=== PATIENT | male | born 1975 | race Caucasian/White ===

== ENCOUNTER 2016-10-11 19:18 | Emergency (ER) | payer OTHER ==
[2016-10-11] MEDS ORDERED: DIPHENHYDRAMINE HCL 50 MG CAPSULE PO ONE (20:29)
[2016-10-11] MEDS ORDERED: FAMOTIDINE 20 MG TABLET PO ONE (20:29)
[2016-10-11] MEDS ORDERED: PREDNISONE 20 MG TABLET PO ONE (20:29)
--- NOTE | 2016-10-11 20:32 | ER Document Report ---
ED Medical Screen (RME) - General Chief Complaint: Allergic Reaction Stated Complaint: POSSIBLE ALLERGIC REACTION Time seen by provider: 20:29 Mode of Arrival: Ambulatory Information source: Patient Notes: 41-year-old male presents to ED for a bite of some sort to his left hand with swelling to the both sides of the hand down the second third fourth and fifth finger. Will treat with Benadryl Pepcid and prednisone in the RME. I have greeted and performed a rapid initial assessment of this patient. A comprehensive ED assessment and evaluation of the patient, analysis of test results and completion of medical decision making process will be conducted by an additional ED providers. TRAVEL OUTSIDE OF THE [place] IN LAST 30 DAYS: No - Related Data Allergies/Adverse Reactions: No Known Allergies Allergy (Unverified 10/11/16 20:26) Past Medical History - Social History Chew tobacco use (# tins/day): No Frequency of alcohol use: None Drug Abuse: None Renal/ Medical History: Denies: Hx Peritoneal Dialysis
[2016-10-11 21:57] VITALS: BP 111/74
--- NOTE | 2016-10-11 21:59 | ER Document Report ---
ED Allergic Reaction - General Chief Complaint: Allergic Reaction Stated Complaint: POSSIBLE ALLERGIC REACTION Time seen by provider: 21:54 Mode of Arrival: Ambulatory Information source: Patient Notes: 41-year-old male presents to ED for an insect bite to the left hand with swelling to the front and back of his hand up his second third fourth and fifth finger. Patient states she's been taken Benadryl and it was not doing a lot of good. Patient was given Benadryl Pepcid and prednisone in the RME earlier TRAVEL OUTSIDE OF THE [place] IN LAST 30 DAYS: No - HPI Onset: Yesterday Onset/Duration: Gradual Quality of pain: Throbbing - Tight Severity: Moderate Pain Level: 3 Identified cause: No Swelling: Hands Associated symptoms: None Similar symptoms previously: No Recently seen / treated by doctor: Yes - Related Data Allergies/Adverse Reactions: No Known Allergies Allergy (Unverified 10/11/16 20:26) Past Medical History - General Information source: Patient - Social History Smoking Status: Never Smoker Chew tobacco use (# tins/day): No Frequency of alcohol use: None Drug Abuse: None Occupation: retired Lives with: Family Family History: Arthritis, CAD, CVA, DM, Hyperlipidemia, Hypertension, Malignancy. denies: COPD, Thyroid Disfunction Patient has suicidal ideation: No Patient has homicidal ideation: No - Past Medical History Cardiac Medical History: Reports: Hx Hypercholesterolemia Pulmonary Medical History: Reports: Hx Asthma EENT Medical History: Reports: None Neurological Medical History: Reports: Hx Migraine Renal/ Medical History: Reports: None. Denies: Hx Peritoneal Dialysis GI Medical History: Reports: Hx Gastroesophageal Reflux Disease, Hx Colonoscopy Musculoskeltal Medical History: Reports Hx Arthritis, Reports Hx Musculoskeletal Trauma - 2 ribs hip and sternum fracture Skin Medical History: Reports None Psychiatric Medical History: Reports: Hx Depression Traumatic Medical History: Reports: Hx Fractures - Sternum ribs and hip, Hx Pneumothorax, Hx Traumatic Brain Injury. Denies: Hx Gunshot Wound Infectious Medical History: Reports: None Surgical Hx: Negative Past Surgical History: Reports: None - Immunizations Immunizations up to date: Yes Hx Diphtheria, Pertussis, Tetanus Vaccination: Yes History of Influenza Vaccine for 05/2016 - 10/2016 Season: Yes Review of Systems - Review of Systems Constitutional: No symptoms reported EENT: No symptoms reported Cardiovascular: No symptoms reported Respiratory: No symptoms reported Gastrointestinal: No symptoms reported Genitourinary: No symptoms reported Male Genitourinary: No symptoms reported Musculoskeletal: No symptoms reported Skin: No symptoms reported Hematologic/Lymphatic: No symptoms reported Neurological/Psychological: No symptoms reported Physical Exam - Vital signs Vitals: Temp Pulse Resp BP Pulse Ox 97.8 F 77 16 128/80 H 97 10/11/16 20:28 10/11/16 20:28 10/11/16 20:28 10/11/16 20:28 10/11/16 20:28 Interpretation: Normal - General General appearance: Appears well, Alert - HEENT Head: Normocephalic, Atraumatic Eyes: Normal Pupils: PERRL - Respiratory Respiratory status: No respiratory distress Chest status: Nontender Breath sounds: Normal Chest palpation: Normal - Cardiovascular Rhythm: Regular Heart sounds: Normal auscultation Murmur: No - Abdominal Inspection: Normal Distension: No distension Bowel sounds: Normal Tenderness: Nontender Organomegaly: No organomegaly - Back Back: Normal, Nontender - Extremities General upper extremity: Normal ROM, Normal temperature General lower extremity: Normal inspection, Nontender, Normal color, Normal ROM , Normal temperature, Normal weight bearing. No: Tonie's sign Hand: Tender, Swelling, Other - Erythema to the hand due to insect bite - Neurological Neuro grossly intact: Yes Cognition: Normal Orientation: AAOx4 [place] Coma Scale Eye Opening: Spontaneous Gen Coma Scale Verbal: Oriented Gen Coma Scale Motor: Obeys Commands Gen Coma Scale Total: 15 Speech: Normal Motor strength normal: LUE, RUE, LLE, RLE Sensory: Normal - Psychological Associated symptoms: Normal affect, Normal mood - Skin Skin Temperature: Warm Skin Moisture: Dry Skin Color: Normal Course - Re-evaluation Re-evalutation: 10/11/16 22:05 Patient was treated with prednisone and Pepcid and Benadryl and prescriptions given for prednisone and Pepcid patient instructed on use of Benadryl. [facility] - Vital Signs Vital signs: Temp Pulse Resp BP Pulse Ox 97.8 F 77 16 128/80 H 97 10/11/16 20:28 10/11/16 20:28 10/11/16 20:28 10/11/16 20:28 10/11/16 20:28 Discharge - Discharge Clinical Impression: swollen insect bite Condition: Stable Disposition: HOME, SELF-CARE Additional Instructions: ACUTE ALLERGIC REACTION: Your symptoms are due to an allergic reaction. Allergy can cause hives, swelling of the hands, feet, and face, hoarseness, and difficulty swallowing or breathing. It may be due to exposure to medication, animal dander, foods, infection, or insect bites. Medication is a common cause, even when prior use of this same medication caused no problems. Acute treatment may include adrenalin and antihistamines. Usually, the specific allergic agent can't be identified unless repeated episodes occur. Home treatment includes the following: (1) Stop any suspicious medications. This will be discussed with you. (2) Oral antihistamines for the next four to five days. Example, diphenhydramine (Benadryl) every four hours. (3) You may also use cimetidine (Tagamet), ranitidine (Zantac), or famotidine ( Pepcid) every four hours if diphenhydramine is not controlling itching and hives. (4) Avoid aspirin until the hives completely disappear. (5) Avoid hot baths or showers until the hives are completely gone. Call the doctor if faintness, difficulty swallowing, tightness in the chest , or wheezing occurs. STEROID MEDICATION: You have been given a medicine of the cortisone/steroid class. This medication is used to control inflammation or allergy. It is usually only given for a short period of time, until the acute process subsides. There are usually no side effects from short-term use of cortisone-like medications. Some persons feel an increased sense of well-being and are not sleepy at bedtime. Long-term use of cortisone medications is best avoided, unless required for a severe condition. If your condition does not remit, or relapses after the course of corticosteroid medication, you should consult your physician. ACID-SUPPRESSING MEDICATION: You have a prescription for medicine which reduces the stomach's secretion of acid. Examples include Zantac, Tagament, and Pepcid. These drugs are often used to allow healing of ulcers or esophagitis. They may be needed to prevent recurrence of ulcers in some patients, or to prevent damage from acid reflux in the esophagus. Take all medication as prescribed, even after the pain is gone. Regular antacids may be added as needed if you have symptoms while taking this medicine. These medications sometimes are prescribed for allergic reactions because they have anti-histaminic effects and relieve the rash and itching of the reaction. There are usually no side effects from this medication. But, in rare cases and particularly in the elderly, serious problems can occur. Contact your doctor if there is fever, rash, hallucinations, confusion, or unusual bruising. Contact your doctor at once if you develop lightheadedness, black or bloody stool, or bloody vomitus. USE OF DIPHENHYDRAMINE: The use of diphenhydramine (Benadryl) has been recommended to control allergic symptoms. The 25 mg strength is available over- the-counter, as well as the elixir. This antihistamine is used for many symptoms. It's useful for itching, watering eyes and nose, allergic swelling, hives, and insect stings. The medication can be repeated four times daily. Age Elixir (12.5 mg/tsp) 25 mg pill 2-3 yr 1/2 tsp 4-8 yr 1 tsp 9-14 yr 2 tsp one tab adult 1-2 tabs Antihistamines may cause drowsiness, especially with the first dose. Do not operate machinery or drive while under the effects of the medication. Do not combine the medication with alcohol, or with any other medication without talking to your doctor. FOLLOW-UP CARE: If you have been referred to a physician for follow-up care, call the physician s office for an appointment as you were instructed or within the next two days. If you experience worsening or a significant change in your symptoms, notify the physician immediately or return to the Emergency Department at any time for re-evaluation. Prescriptions: Famotidine [Pepcid 20 mg Tablet] 20 mg PO BID #12 tablet Prednisone [Deltasone 20 mg Tablet] 3 tab PO DAILY 5 Days Forms: Elevated Blood Pressure
== END 2016-10-11 21:58 | disposition home or self-care (01) ==
LOC: ER 19:18
DX: S60.562A Insect bite (nonvenomous) of left hand, initial encounter (principal); W57.XXXA Bitten or stung by nonvenomous insect and other nonvenomous arthropods, initial encounter; E78.00 Pure hypercholesterolemia, unspecified
CPT/HCPCS: 99283; J7512

== ENCOUNTER 2017-02-02 17:24 | Emergency (ER) | payer OTHER ==
[2017-02-02 17:35] VITALS: BP 131/74
[2017-02-02] MEDS ORDERED: PREDNISONE 20 MG TABLET PO ONE (17:57)
[2017-02-02] MEDS ORDERED: FAMOTIDINE 20 MG TABLET PO ONE (17:57)
--- NOTE | 2017-02-02 17:59 | ER Document Report ---
ED Skin Rash/Insect Bite/Abscs - General Chief Complaint: Insect Bite Stated Complaint: POSSIBLE ALLERGIC REACTION Time Seen by Provider: 02/02/17 17:49 Mode of Arrival: Ambulatory Information source: Patient TRAVEL OUTSIDE OF THE [place] IN LAST 30 DAYS: No - HPI Patient complains to provider of: Tender/swollen area, Insect bite Onset: This afternoon Onset/Duration: Gradual Quality of pain: No pain Skin Character: Erythema Quality of rash: Itchy Identify cause: No Notes: Patient is a 41-year-old male who presents to the emergency room complaining of swollen insect bites that he first noted earlier today, he was at its worst trailer when he felt itchiness on his mid back, then developed several areas of erythema and swelling with itchiness on the extremities, he took 100 mg of Benadryl prior to coming to the emergency room and reports feeling much better at time of evaluation, he denies any difficulty swallowing or breathing, does have a history of similar symptoms previously, has not had any allergy testing - Related Data Allergies/Adverse Reactions: No Known Allergies Allergy (Verified 02/02/17 17:32) Past Medical History - General Information source: Patient - Social History Smoking Status: Unknown if Ever Smoked Family History: Arthritis, CAD, CVA, DM, Hyperlipidemia, Hypertension, Malignancy. denies: COPD, Thyroid Disfunction Patient has suicidal ideation: No Patient has homicidal ideation: No - Past Medical History Cardiac Medical History: Reports: Hx Hypercholesterolemia Pulmonary Medical History: Reports: Hx Asthma Neurological Medical History: Reports: Hx Migraine Renal/ Medical History: Denies: Hx Peritoneal Dialysis GI Medical History: Reports: Hx Gastroesophageal Reflux Disease, Hx Colonoscopy Musculoskeltal Medical History: Reports Hx Arthritis, Reports Hx Musculoskeletal Trauma - 2 ribs hip and sternum fracture Psychiatric Medical History: Reports: Hx Depression Traumatic Medical History: Reports: Hx Fractures - Sternum ribs and hip, Hx Pneumothorax, Hx Traumatic Brain Injury. Denies: Hx Gunshot Wound - Immunizations Immunizations up to date: Yes Hx Diphtheria, Pertussis, Tetanus Vaccination: Yes Review of Systems - Review of Systems Constitutional: No symptoms reported EENT: No symptoms reported Cardiovascular: No symptoms reported Respiratory: No symptoms reported Gastrointestinal: No symptoms reported Genitourinary: No symptoms reported Male Genitourinary: No symptoms reported Musculoskeletal: No symptoms reported Skin: See HPI Hematologic/Lymphatic: No symptoms reported Neurological/Psychological: No symptoms reported -: Yes All other systems reviewed and negative Physical Exam - Vital signs Vitals: Temp Pulse Resp BP Pulse Ox 97.6 F 85 20 131/74 H 99 02/02/17 17:32 02/02/17 17:32 02/02/17 17:32 02/02/17 17:32 02/02/17 17:32 - Notes Notes: - General General appearance: Appears well, Alert In distress: None - HEENT Head: Normocephalic, Atraumatic Eyes: Normal Conjunctiva: Normal Extraocular movements intact: Yes Eyelashes: Normal Pupils: PERRL - Respiratory Respiratory status: No respiratory distress - Cardiovascular Rhythm: Regular - Abdominal Inspection: Normal - Back Back: Normal - Extremities General upper extremity: Normal inspection General lower extremity: Normal inspection - Neurological Neuro grossly intact: Yes Orientation: AAOx4 [place] Coma Scale Eye Opening: Spontaneous [place] Coma Scale Verbal: Oriented Gen Coma Scale Motor: Obeys Commands Gen Coma Scale Total: 15 - Psychological Associated symptoms: Normal affect, Normal mood - Skin Skin Temperature: Warm Skin Moisture: Dry Skin Color: Normal on the distal right upper arm, there is a 2 cm area of erythema and mild induration, no drainage, no tenderness, the left upper arm there is a 5 cm area of erythema and induration, both of these areas are consistent with insect bite Course - Re-evaluation Re-evalutation: 02/02/17 19:43 It was likely insect bite, with localized reaction and possible systemic urticaria developing, which was improved after he took Benadryl prior to coming to the emergency room, he was given several other prescriptions for medications for symptom relief, advised to follow-up with a primary care provider and an craft recruiter or return if symptoms worsen, patient acknowledges understanding and agreement with this plan - Vital Signs Vital signs: Temp Pulse Resp BP Pulse Ox 97.6 F 85 20 131/74 H 99 02/02/17 17:32 02/02/17 17:32 02/02/17 17:32 02/02/17 17:32 02/02/17 17:32 Discharge - Discharge Clinical Impression: Insect bites Qualifiers: Encounter type: initial encounter Qualified Code(s): W57.XXXA - Bitten or stung by nonvenomous insect and other nonvenomous arthropods, initial encounter Condition: Stable Disposition: HOME, SELF-CARE Instructions: Insect Bites ([facility]), Insect Sting ([facility]), Swollen Insect Bite or Sting ([facility]) Additional Instructions: Follow up with your primary care provider in one to 2 days. Return to the emergency room immediately if symptoms worsen or any additional concerns. Prescriptions: Diphenhydramine HCl [Benadryl 25 Mg Capsule] 25 mg PO Q6 #30 capsule Epinephrine [Epipen 2-Mack] 0.3 mg IJ ONCE PRN #1 ml PRN Reason: Famotidine [Pepcid 20 mg Tablet] 20 mg PO BID #12 tablet Methylprednisolone [Medrol Dosepack (4 mg/Tab) 21 Tab/Dosepak] 4 mg PO ASDIR PRN #21 tab.ds.pk PRN Reason:
== END 2017-02-02 18:06 | disposition home or self-care (01) ==
LOC: ER 17:24
DX: S40.862A Insect bite (nonvenomous) of left upper arm, initial encounter (principal); S40.861A Insect bite (nonvenomous) of right upper arm, initial encounter; W57.XXXA Bitten or stung by nonvenomous insect and other nonvenomous arthropods, initial encounter; E78.00 Pure hypercholesterolemia, unspecified; J45.909 Unspecified asthma, uncomplicated
CPT/HCPCS: 99281; J7512

== ENCOUNTER 2020-03-12 12:22 | Emergency (ER) | payer OTHER ==
[2020-03-12] MEDS ORDERED: EPINEPHRINE INJ/PF 1 MG/1 ML AMPULE IM ONE ×2 (12:29→14:44)
[2020-03-12] MEDS ORDERED: DIPHENHYDRAMINE HCL 50 MG/ML VIAL IV ONE ×2 (12:29→13:51)
[2020-03-12] MEDS ORDERED: METHYLPREDNISOLONE INJ 125 MG/2 ML SDV IV ONE (12:30)
[2020-03-12] MEDS ORDERED: FAMOTIDINE INJ/PF 20 MG/2 ML SDV IV ONE (12:30)
--- NOTE | 2020-03-12 12:35 | ER Document Report ---
ED Medical Screen (RME) - General Chief Complaint: Allergic Reaction Stated Complaint: THROAT SWELLING Time Seen by Provider: 03/12/20 12:29 Mode of Arrival: Wheelchair Information source: Patient Notes: 44-year-old male presented to ED for swelling to the throat and feeling like his throat is closing over. 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 He states his gave him 50 of Benadryl p.o. and then drove him to the emergency room. He states he got bit about 1150. He states his throat started closing while he was driving so as soon as he got to the house for his to bring him to the emergency room he took the Benadryl and then came straight here. He has been ordered Solu-Medrol 125 mg IV, Pepcid 20 mg IV and epinephrine 0.03 epinephrine IM. He is alert oriented and is able to answer all questions appropriately at this time. I have greeted and performed a rapid initial assessment of this patient. A comprehensive ED assessment and evaluation of the patient, analysis of test results and completion of medical decision making process will be conducted by an additional ED providers. TRAVEL OUTSIDE OF THE [place] IN LAST 30 DAYS: No - Related Data Allergies/Adverse Reactions: No Known Allergies Allergy (Verified 02/02/17 17:32) Past Medical History - Past Medical History Cardiac Medical History: Reports: Hx Hypercholesterolemia Pulmonary Medical History: Reports: Hx Asthma Neurological Medical History: Reports: Hx Migraine Renal/ Medical History: Denies: Hx Peritoneal Dialysis GI Medical History: Reports: Hx Gastroesophageal Reflux Disease, Hx Colonoscopy Musculoskeltal Medical History: Reports Hx Arthritis, Reports Hx Musculoskeletal Trauma - 2 ribs hip and sternum fracture Psychiatric Medical History: Reports: Hx Depression Traumatic Medical History: Reports: Hx Fractures - Sternum ribs and hip, Hx Pneumothorax, Hx Traumatic Brain Injury. Denies: Hx Gunshot Wound - Immunizations Immunizations up to date: Yes Hx Diphtheria, Pertussis, Tetanus Vaccination: Yes
--- NOTE | 2020-03-12 13:07 | ER Document Report ---
ED General - General Chief Complaint: Allergic Reaction Stated Complaint: THROAT SWELLING Time Seen by Provider: 03/12/20 12:29 [facility] Care Provider: [facility] [Primary [facility]] - Follow up as needed Mode of Arrival: Wheelchair Notes: Patient is a 44-year-old white male with a history of allergic reaction to the insect bites and stings after being tested with allergy testing who presents today with a chief complaint of multiple insect bites from a black ant colony. He states he was not aware the answer on him, he was working in an area where the ants were. He states the bit him in multiple places on the torso and around the neck. He states he took a shower and rinsed off he started feeling a tightness in the throat. He denies any difficulty swallowing or trouble with breathing. States he had EpiPen's on hand given his testing results but has never had to use them. He reports he is never had to be given epi in a hospital setting or in a para-hospital setting and never been intubated or admitted for anaphylaxis. TRAVEL OUTSIDE OF THE [place] IN LAST 30 DAYS: No - Related Data Allergies/Adverse Reactions: Ant bite Allergy (Uncoded 03/12/20 12:44) Home Medications: dextroamphetimin meloxicam celalapram, omeprazole loratidine Past Medical History - General Information source: Patient - Social History Smoking Status: Never Smoker Chew tobacco use (# tins/day): No Frequency of alcohol use: Rare Drug Abuse: None Family History: Arthritis, CAD, CVA, DM, Hyperlipidemia, Hypertension, Malignancy. denies: COPD, Thyroid Disfunction Patient has homicidal ideation: No - Past Medical History Cardiac Medical History: Reports: Hx Hypercholesterolemia Pulmonary Medical History: Reports: Hx Asthma Neurological Medical History: Reports: Hx Migraine Renal/ Medical History: Denies: Hx Peritoneal Dialysis GI Medical History: Reports: Hx Gastroesophageal Reflux Disease, Hx Colonoscopy Musculoskeletal Medical History: Reports Hx Arthritis, Reports Hx Musculoskeletal Trauma - 2 ribs hip and sternum fracture Psychiatric Medical History: Reports: Hx Depression Traumatic Medical History: Reports: Hx Fractures - Sternum ribs and hip, Hx Pneumothorax, Hx Traumatic Brain Injury. Denies: Hx Gunshot Wound - Immunizations Immunizations up to date: Yes Hx Diphtheria, Pertussis, Tetanus Vaccination: Yes Review of Systems - Review of Systems Constitutional: denies: Fever EENT: Throat swelling Cardiovascular: denies: Chest pain Respiratory: denies: Short of breath Gastrointestinal: denies: Nausea Genitourinary: denies: Burning Male Genitourinary: No symptoms reported Musculoskeletal: denies: Muscle pain, Muscle stiffness Skin: Change in color, Lesions Hematologic/Lymphatic: denies: Easy bleeding Neurological/Psychological: denies: Headaches Physical Exam - Vital signs Vitals: Resp BP Pulse Ox 23 H 139/98 H 98 03/12/20 12:30 03/12/20 12:30 03/12/20 12:30 - General General appearance: Appears well, Alert In distress: None Notes: Speaking in full sentences. - HEENT Head: Normocephalic, Atraumatic Eyes: Normal Conjunctiva: Normal Extraocular movements intact: Yes Eyelashes: Normal Ears: Normal External canal: Normal Tympanic membrane: Normal Nasal: Normal Mouth/Lips: Normal. No: Angioedema Mucous membranes: Normal Pharynx: Other - Patent airway. Handling secretions well. No sublingual or submental swelling. No trismus. Neck: Supple, Other - No edema or mass - Respiratory Respiratory status: No respiratory distress Chest status: Nontender Breath sounds: Normal Chest palpation: Normal - Cardiovascular Rhythm: Regular Heart sounds: Normal auscultation - Neurological Neuro grossly intact: Yes Cognition: Normal Orientation: AAOx4 - Psychological Associated symptoms: Normal affect, Normal mood - Skin Skin Color: Other - Multiple areas but the torso and neck consistent with insect bite/sting, patient reports areas are burning. Course - Re-evaluation Re-evalutation: 03/12/20 13:06 Patient is maintaining his airway. His EpiPen's are we will plan to prescribe new EpiPen's. He did not use any prehospital nor any other medicines. Upon arrival here he was given Benadryl, Pepcid, epi and Solu-Medrol. He is on the monitor and we will continue to monitor his status and airway. 03/12/20 14:47 Patient has been resting comfortably here in the emergency department. No airway compromise. He is stable without worsening skin eruption. He reports that he has some restless leg which is likely secondary to the medications he was given here. He is otherwise stable for discharge at this time. His epinephrine autoinjectors are , we will give a prescription for new ones. He is aware how to use them. Will send home on a short course of prednisone. He can use Benadryl and Pepcid per label instructions plus minus as needed. Counseled him regarding the importance of outpatient follow-up and advised they return here any ER immediately with any new, persistent or worsening symptoms. They verbalized understood and agreed. - Vital Signs Vital signs: Temp Pulse Resp BP Pulse Ox 17 137/95 H 99 03/12/20 13:01 03/12/20 13:00 03/12/20 13:01 Discharge - Discharge Clinical Impression: Allergic reaction Qualifiers: Encounter type: initial encounter Qualified Code(s): T78.40XA - Allergy, unspecified, initial encounter Insect bite Qualifiers: Encounter type: initial encounter Site of insect bite: unspecified site Qualified Code(s): W57.XXXA - Bitten or stung by nonvenomous insect and other nonvenomous arthropods, initial encounter Condition: Stable Disposition: HOME, SELF-CARE Instructions: Epinephrine, Anaphylaxis Kit ([facility]) Additional Instructions: Follow-up with your regular doctor in 2 to 3 days for reevaluation. Return here or any ER immediately with any new, persistent or worsening symptoms. Prescriptions: Prednisone [Deltasone 10 mg Tablet] 10 mg PO ASDIR PRN #21 tablet PRN Reason: Epinephrine [Epipen 2-Mack] 0.3 mg IM ASDIR PRN #1 packet PRN Reason: Referrals: [facility] [Primary [facility]] - Follow up as needed
[2020-03-12 15:04] VITALS: BP 146/86
== END 2020-03-12 15:03 | disposition home or self-care (01) ==
LOC: ER 12:22
DX: T78.40XA Allergy, unspecified, initial encounter (principal); X58.XXXA Exposure to other specified factors, initial encounter; S10.96XA Insect bite of unspecified part of neck, initial encounter; T14.8XXA Other injury of unspecified body region, initial encounter; W57.XXXA Bitten or stung by nonvenomous insect and other nonvenomous arthropods, initial encounter; Y92.009 Unspecified place in unspecified non-institutional (private) residence as the place of occurrence of the external cause; R09.89 Other specified symptoms and signs involving the circulatory and respiratory systems; G25.81 Restless legs syndrome; J45.909 Unspecified asthma, uncomplicated; K21.9 Gastro-esophageal reflux disease without esophagitis; Z79.899 Other long term (current) drug therapy; Z79.1 Long term (current) use of non-steroidal anti-inflammatories (NSAID); Z91.038 Other insect allergy status
CPT/HCPCS: 99283; 96372; 96374; 96375; J1200; J0171; J2930; S0028

== ENCOUNTER 2020-05-03 17:19 | Emergency (ER) | payer OTHER ==
[2020-05-03] MEDS ORDERED: MORPHINE SULFATE 10 MG/ML INJ IV ONE ×2 (18:02→20:42)
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
[2020-05-03] MEDS ORDERED: KETOROLAC TROMETHAMINE INJ/PF 30 MG/1 ML SDV IV ONE (20:42)
[2020-05-03] MEDS ORDERED: BUPIVACAINE HCL 0.5 % INJ/PF 30 ML SDV INJ ONE (20:43)
[2020-05-03] MEDS ORDERED: LIDOCAINE 1% INJ (10 MG/ML) 10 ML MDV INJ ONE (20:43)
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
[2020-05-03] MEDS: PROPOFOL INJ 200 MG/20 ML VIAL IV ONE ×2 (22:43→23:41)
[2020-05-03] MEDS: KETAMINE HCL INJ 500 MG/10 ML VIAL IV ONE ×2 (22:47→23:40)
[2020-05-03] MEDS ORDERED: KETAMINE HCL INJ 500 MG/10 ML VIAL IV ONE (23:27)
[2020-05-03] MEDS ORDERED: PROPOFOL INJ 200 MG/20 ML VIAL IV ONE (23:30)
--- NOTE | 2020-05-03 23:45 | RADIOLOGY REPORT (SQ) ---
CLINICAL HISTORY: POST REDUCTION COMPARISON: Same date TECHNIQUE: XR WRIST 3 OR MORE VIEWS 05/03/2020 10:56 PM CDT FINDINGS: Distal radius and ulna fractures are noted significantly changed. There is slightly improved alignment of the distal radius fracture. Joint spaces are preserved. There is diffuse soft tissue swelling. Cast material is in place. IMPRESSION: Slightly improved alignment of distal forearm fractures.
--- NOTE | 2020-05-04 00:13 | RADIOLOGY REPORT (SQ) ---
CLINICAL HISTORY: trauma left hip pain COMPARISON: None. TECHNIQUE: XR HIP 2 OR MORE VIEWS 05/03/2020 11:27 PM CDT FINDINGS: There is no fracture. Joint spaces are preserved. Soft tissues are unremarkable. IMPRESSION: No acute osseous findings.
[2020-05-04] MEDS ORDERED: OXYCODONE-ACETAMINOPHEN 5-325 MG TABLET PO ONE (02:04)
[2020-05-04 02:41] VITALS: BP 127/68
== END 2020-05-04 02:38 | disposition home or self-care (01) ==
LOC: ER 17:19
DX: S62.101A Fracture of unspecified carpal bone, right wrist, initial encounter for closed fracture (principal); S89.91XA Unspecified injury of right lower leg, initial encounter; S99.921A Unspecified injury of right foot, initial encounter; M25.552 Pain in left hip; V86.05XA Driver of 3- or 4- wheeled all-terrain vehicle (ATV) injured in traffic accident, initial encounter; E78.00 Pure hypercholesterolemia, unspecified
CPT/HCPCS: 25635; 96376; 99285; 99152; 96374; 96375; 73630; 73502; 73564; 73110; J3490 ×2; J1885; J2270; J2704

== ENCOUNTER → 2020-05-10 | Outpatient (CLI) | payer OTHER ==
--- NOTE | 2020-05-10 10:34 | RADIOLOGY REPORT (SQ) ---
EXAM DESCRIPTION: CHEST PA/LATERAL IMAGES COMPLETED DATE/TIME: 05/10/2020 10:27 am REASON FOR STUDY: PRE-OP COMPARISON: None. EXAM PARAMETERS: NUMBER OF VIEWS: two views TECHNIQUE: Digital Frontal and Lateral radiographic views of the chest acquired. RADIATION DOSE: NA LIMITATIONS: none FINDINGS: LUNGS AND PLEURA: No opacities, masses or pneumothorax. No pleural effusion. MEDIASTINUM AND HILAR STRUCTURES: No masses or contour abnormalities. HEART AND VASCULAR STRUCTURES: Heart normal size. No evidence for failure. BONES: No acute findings. HARDWARE: None in the chest. OTHER: No other significant finding. IMPRESSION: NO SIGNIFICANT RADIOGRAPHIC FINDING IN THE CHEST. TECHNICAL DOCUMENTATION: JOB ID: [id number] 2010 [employer]- All Rights Reserved Reading location - IP/workstation name: [email or web address]
[2020-05-10 11:19] LABS: HEMATOCRIT 41.8 % (37.9-51.0); HEMOGLOBIN 15.1 g/dL (13.5-17.0); MEAN CORPUSCULAR HEMOGLOBIN 32.4 pg (27.0-33.4); MEAN CORPUSCULAR HGB CONC 36.2 g/dL (32.0-36.0); MEAN CORPUSCULAR VOLUME 90 fl (80-97); PLATELET COUNT 256 10^3/uL (150-450); RED BLOOD COUNT 4.67 10^6/uL (4.35-5.55); RED CELL DISTRIBUTION WIDTH 13.3 % (11.5-14.0); WHITE BLOOD COUNT 7.3 10^3/uL (4.0-10.5)
[2020-05-10 11:20] LABS: ABSOLUTE EOSINOPHILS # (AUTO) 0.2 10^3/uL (0.0-0.6); ABSOLUTE LYMPHOCYTES (AUTO) 2.3 10^3/uL (0.5-4.7); ABSOLUTE MONOCYTES (AUTO) 0.7 10^3/uL (0.1-1.4); BASOPHILS % (AUTO) 0.5 % (0-2); EOSINOPHILS % (AUTO) 2.5 % (0-6); LYMPHOCYTES % (AUTO) 32.2 % (13-45); SEGMENTED NEUTROPHILS % (AUTO) 54.8 % (42-78); TOTAL CELLS COUNTED % (AUTO) 100 %
[2020-05-10 11:38] LABS: ANION GAP 9 (5-19); BLOOD UREA NITROGEN 19 mg/dL (7-20); CALCIUM 9.3 mg/dL (8.4-10.2); CARBON DIOXIDE 30 mmol/L (22-30); CHLORIDE 103 mmol/L (98-107); GLUCOSE 104 mg/dL (75-110); POTASSIUM 4.7 mmol/L (3.6-5.0)
--- NOTE | 2020-05-11 08:37 | EKG REPORT ---
SEVERITY:- ABNORMAL ECG - SINUS RHYTHM LEFT ATRIAL ABNORMALITY : Confirmed by: Shari Mendoza MD 11-May-2020 08:36:25
== END ==
LOC: OD 09:35
PROVIDERS: ATTEND Orthopaedic Surgery
DX: Z01.812 Encounter for preprocedural laboratory examination (principal); Z01.810 Encounter for preprocedural cardiovascular examination; Z01.811 Encounter for preprocedural respiratory examination
CPT/HCPCS: 36415; 71046; 80048; 85025; 93005; 93010

== ENCOUNTER 2020-05-14 11:18 | Day surgery (SDC) | payer OTHER ==
[~2020-05-14 11:18] MED LIST: CEFAZOLIN 2 GM/D5W RTU 2 GM/50 ML RTUPB IV PRN; DEXAMETHASONE SOD PHOSPHATE INJ 4 MG/1 ML VIAL ONE; KETOROLAC TROMETHAMINE 60 MG/2 ML SDV ONE; ONDANSETRON HCL INJ/PF 4 MG/2 ML SDV ONE
[2020-05-14] MEDS ORDERED: FENTANYL CITRATE INJ/PF 100 MCG/2 ML AMPUL ONE ×2 (11:43→14:27)
[2020-05-14] MEDS ORDERED: MIDAZOLAM 2 MG/2 ML INJ ONE (11:44)
[2020-05-14] MEDS ORDERED: PROPOFOL INJ 200 MG/20 ML VIAL IV ONE (11:44)
[2020-05-14] MEDS ORDERED: ROPIVACAINE HCL 0.5% INJ/PF (5 MG/1 ML) 30 ML SDV ONE (11:48)
[2020-05-14 12:05] LABS: APPEARANCE,URINE CLEAR; BILIRUBIN,URINE NEGATIVE (NEGATIVE); COLOR,URINE YELLOW; GLUCOSE, URINE NEGATIVE (NEGATIVE); KETONES,URINE NEGATIVE (NEGATIVE); LEUKOCYTE ESTERASE,URINE NEGATIVE (NEGATIVE); NITRITE,URINE NEGATIVE (NEGATIVE); PROTEIN,URINE NEGATIVE (NEGATIVE); URINE SPECIFIC GRAVITY 1.017; UROBILINOGEN,URINE NEGATIVE mg/dL (<2.0)
[2020-05-14] MEDS ORDERED: CEFAZOLIN 2 GM/D5W RTU 2 GM/50 ML RTUPB IV ONE (12:48)
[2020-05-14] MEDS ORDERED: PROMETHAZINE HCL INJ 25 MG/1 ML VIAL IV PRN ×2 (12:54)
[2020-05-14] MEDS ORDERED: ONDANSETRON HCL INJ/PF 4 MG/2 ML SDV IV PRN ×2 (12:54→14:20)
[2020-05-14] MEDS ORDERED: DIPHENHYDRAMINE HCL 50 MG/ML VIAL IV PRN (12:54)
[2020-05-14] MEDS ORDERED: OXYCODONE-ACETAMINOPHEN 5-325 MG TABLET PO PRN ×3 (12:54→14:20)
[2020-05-14] MEDS ORDERED: MEPERIDINE HCL/PF INJ 25 MG/1 ML DISP.SYRIN IV PRN (12:54)
[2020-05-14] MEDS ORDERED: FENTANYL CITRATE INJ/PF 100 MCG/2 ML AMPUL IV PRN ×3 (12:54)
[2020-05-14] MEDS ORDERED: MORPHINE SULFATE 10 MG/ML INJ IV PRN (14:20)
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
--- NOTE | 2020-05-14 14:39 | Discharge Summary ---
Discharge Summary (SDC) - Discharge Final Diagnosis: Right distal wrist fracture Date of Surgery: 05/14/20 Discharge Date: 05/14/20 Condition: Good Treatment or Instructions: Schedule Follow Up w/ Dr. Vance Tee @ [facility] for Surgery to be seen in 10-14 days or as scheduled [place]: [place]: [place]: Ice and elevate Keep splint clean/dry/intact, do not remove. If your fingers become numb please unwrap the Jamal wrap but leave the splint in place, if the sensation does not return within 30 minutes please return to the emergency department. May begin finger range of motion attempting to make full fist. Please use ibuprofen (Motrin or Advil) 600-800 mg every 8 hours as needed for pain or fever DO NOT TAKE w/ TORADOL may use once TORADOL complete. You may also use acetaminophen (Tylenol) 1000 mg every 4-6 hours as needed for pain or fever. Please be aware that many medications contain acetaminophen, do not exceed a total of 1000 mg of acetaminophen every 6 hours. If ibuprofen and acetaminophen are not sufficient for your pain you may take the Percocet/[place]. Please be aware that the Percocet/[place] does contain Tylenol. Stool softener of choice when on pain medication. USE OF [id number] IBUPROFEN: Ibuprofen (Advil, Nuprin, Medipren, Motrin IB) is a medication for fever and pain control. In addition, it has anti- inflammatory effects which may be beneficial, especially in the treatment of injuries. It's best to take ibuprofen with food. Persons with ulcer disease or allergy to aspirin should notify their physician of this before taking ibuprofen. Ibuprofen can be given every four to six hours, for a total of four doses daily. Age Pain or fever dose Antiinflammatory dose 6-8 yr 200 mg (1 tab) 200 mg (1 tab) 9-11 yr 200 mg (1 tab) 200-400 mg (1-2 tab) 11-14 yr 200-400 mg (1-2 tab) 400 mg (2 tab) 15-adult 400 mg (2 tab) 600 mg (3 tab) ORAL NARCOTIC MEDICATION: You have been given a prescription for pain control. This medication is a narcotic. It's best taken with food, as nausea can result if taken on an empty stomach. Don't operate machinery or drive within six hours of taking this medication. Do not combine this medicine with alcohol, or with any medication which can cause sedation (such as cold tablets or sleeping pills) unless you get permission from the physician. Narcotics tend to cause constipation. If possible, drink plenty of fluids and eat a diet high in fiber and fruits. Please be aware that prescription narcotics also have the potential for abuse. People become addicted to these medications because of the general sense of wellbeing that they induce. This feeling along with a significant reduction in tension, anxiety, and aggression provides a stimulating seductive quality to these drugs. Once your pain is under control, we encourage you to discard your unused narcotics. Referrals: [facility] - Discharge Diet: As Tolerated Respiratory Treatments at Home: Deep Breathing/Coughing, Incentive Spirometer Discharge Activity: No Lifting Over 10 Pounds, No Lifting/Push/Pulling Report the Following to Your Physician Immediately: Fever over 101 Degrees, Unusual Bleeding, Redness, Swelling, Warmth, Increased Soreness
--- NOTE | 2020-05-14 14:40 | RADIOLOGY REPORT (SQ) ---
EXAM DESCRIPTION: NO CHG FLUORO; WRIST RIGHT 2 VIEWS IMAGES COMPLETED DATE/TIME: 05/14/2020 2:12 pm REASON FOR STUDY: ORIF RIGHT WRIST ASSISTED WITH FLUORO IN OR COMPARISON: None. FLUOROSCOPY TIME: 1 minutes 8 seconds 4 Images saved to PACS LIMITATIONS: None. PROCEDURE: ORIF right wrist FINDINGS: Images from fluoro document the procedure. A volar compression plate is present on the di stal radius. Multiple screws. IMPRESSION: ORIF right wrist. Refer to operative note for further information. COMMENT: PQRS 6045F: Fluoroscopy time of the procedure is documented in the report. TECHNICAL DOCUMENTATION: JOB ID: [id number] 2010 [employer]- All Rights Reserved Reading location - IP/workstation name: [email or web address]
--- NOTE | 2020-05-14 14:40 | RADIOLOGY REPORT (SQ) ---
EXAM DESCRIPTION: NO CHG FLUORO; WRIST RIGHT 2 VIEWS IMAGES COMPLETED DATE/TIME: 05/14/2020 2:12 pm REASON FOR STUDY: ORIF RIGHT WRIST ASSISTED WITH FLUORO IN OR COMPARISON: None. FLUOROSCOPY TIME: 1 minutes 8 seconds 4 Images saved to PACS LIMITATIONS: None. PROCEDURE: ORIF right wrist FINDINGS: Images from fluoro document the procedure. A volar compression plate is present on the di stal radius. Multiple screws. IMPRESSION: ORIF right wrist. Refer to operative note for further information. COMMENT: PQRS 6045F: Fluoroscopy time of the procedure is documented in the report. TECHNICAL DOCUMENTATION: JOB ID: [id number] 2010 [employer]- All Rights Reserved Reading location - IP/workstation name: [email or web address]
[2020-05-14 16:25] VITALS: BP 119/85
== END 2020-05-14 16:10 | disposition home or self-care (01) ==
LOC: OROUT 11:18
PROVIDERS: ATTEND Orthopaedic Surgery
DX: S52.571A Other intraarticular fracture of lower end of right radius, initial encounter for closed fracture (principal); V86.99XA Unspecified occupant of other special all-terrain or other off-road motor vehicle injured in nontraffic accident, initial encounter; Y93.89 Activity, other specified; G56.01 Carpal tunnel syndrome, right upper limb; Z79.899 Other long term (current) drug therapy; J45.909 Unspecified asthma, uncomplicated; M25.531 Pain in right wrist
CPT/HCPCS: 81001; 73100; 01830; 25608; 64721; C1713 ×8; C1769; J2795; J2250; J1100; J1885; J3010; J2405; J2704; J0690